=== PATIENT | male | born 1960 | race Caucasian/White ===

== ENCOUNTER 2017-06-30 07:59 | Emergency (ER) | payer BC, OTHER ==
[~2017-06-30] VITALS: Ht 188 cm; Wt 140.7 kg
[~2017-06-30 07:59] MED LIST: KEFLEX500 MG PO; PERCOCET 5/31 TABLET PO
[2017-06-30 09:29] LABS: BASOPHIL (%) 0.3 % (0-1); EOSINOPHIL (%) 0.7 % (0-5); HEMATOCRIT 46.5 % (38.0-50.0); HEMOGLOBIN 15.9 G/DL (12.5-16.6); IMMATURE GRANULOCYTE (%) 0.3 % (0.0-0.7); LYMPHOCYTE (%) 10.4 % (15-42); LYMPHOCYTE COUNT 0.6 K/uL (1.0-2.8); MCH 28.6 PG (29.0-34.0); MCHC 34.2 G/DL (30.0-36.0); MCV 83.8 FL (86-99); MONOCYTE (%) 10.2 % (3-12); MONOCYTE COUNT 0.6 K/uL (0-0.8); NEUTROPHIL (%) 78.1 % (45-76); NEUTROPHIL COUNT 4.7 K/uL (1.8-6.4); PLATELET COUNT 223 K/uL (156-360); RBC DIS.WIDTH-CV 12.3 % (11.8-14.6); RBC DIS.WIDTH-SD 37.3 % (39-53); RED BLOOD COUNT 5.55 M/uL (4.00-5.50)
[2017-06-30 09:54] LABS: CHLORIDE 100 MEQ/L (99-109); POTASSIUM 3.7 MEQ/L (3.7-5.4); SODIUM 134 MEQ/L (136-147)
[2017-06-30 09:59] LABS: GFR ESTIMATE (CALCULATED) > 59 mL/min/ (58.99-99999); GLUCOSE 97 mg/dL (70-99); UREA NITROGEN (BUN) 15 mg/dL (9-23)
[2017-06-30 10:18] LABS: MONOSPOT (MONONUCLEOSIS SEROL) NEGATIVE
[2017-06-30] MEDS ORDERED: PREDNISONE50 MG PO (12:10)
[2017-06-30] MEDS ORDERED: AUGMENTIN875 MG PO (12:10)
[2017-06-30 12:25] VITALS: BP 111/74
== END 2017-06-30 12:26 | disposition home or self-care (01) ==
LOC: EME 07:59
PROVIDERS: Emergency Medicine
DX: I88.9 Nonspecific lymphadenitis, unspecified (principal)
CPT/HCPCS: 70491; 80048; 85025; 86308; 99281; 99283; J7030; J7512